=== PATIENT | female | born 1960 | race Caucasian/White ===

== ENCOUNTER 2017-12-06 09:22 | Emergency (ER) | payer BC, OTHER ==
[~2017-12-06] VITALS: Ht 157.5 cm; Wt 45.3 kg
[~2017-12-06 09:22] MED LIST: BACT800T5 PO
[2017-12-06 09:33] VITALS: BP 133/63; PULSE 94; RESP 16; TEMP 97.8; O2SAT 98
[2017-12-06] MEDS ORDERED: MULTTAB68 P-ARTICULR (09:59)
[2017-12-06] MEDS ORDERED: KETOROLAC TROMETHAMINE 30 MG/ML (IVP) VIAL IV PUSH ONE (10:15)
[2017-12-06] MEDS ORDERED: ONDANSETRON HCL 4 MG/2 ML VIAL IV PUSH ONE (10:15)
[2017-12-06] MEDS ORDERED: SODIUM CHLOR 0.9% 1000 ML INJ 1,000 ML IV ONE (10:15)
--- NOTE | 2017-12-06 10:28 | RADRPT ---
EXAM DATE/TIME: 12/06/2017 10:14 [place] COMPARISON: No previous studies available for comparison. INDICATIONS : Flu like symptoms x 4 days. MEDICAL HISTORY : Smoker. SURGICAL HISTORY : Tubal ligation. ENCOUNTER: Initial ACUITY: 4 - 6 days PAIN SCORE: 4/10 LOCATION: chest FINDINGS: PA and lateral views of the chest demonstrate the lungs to be symmetrically aerated without evidence of mass, infiltrate or effusion. The cardiomediastinal contours are unremarkable. Osseous structure s are intact. CONCLUSION: No acute disease. Wilbert Hoang MD FACR on December 06, 2017 at 10:25 Board Certified Radiologist. This report was verified electronically.
[2017-12-06 10:29] LABS: AUTOMATED NEUTROPHIL # 2.2 TH/MM3 (1.8-7.7); BASOPHIL % 0.4 % (0.0-2.0); EOSINOPHIL % 0.6 % (0.0-4.0); HEMATOCRIT 41.3 % (35.0-46.0); HEMOGLOBIN 13.9 GM/DL (11.6-15.3); MEAN CELL VOLUME 92.9 FL (80.0-100.0); MEAN CORPUSCULAR HEMOGLOBIN 31.2 PG (27.0-34.0); MEAN CORPUSCULAR HGB CONC 33.6 % (32.0-36.0); MEAN PLATELET VOLUME 7.4 FL (7.0-11.0); MONO % 13.4 % (0.0-8.0); MONOCYTE # 0.5 TH/MM3 (0-0.9); NEUT % 58.6 % (16.0-70.0); PLATELET COUNT 229 TH/MM3 (150-450); RED BLOOD COUNT 4.44 MIL/MM3 (4.00-5.30); RED CELL DISTRIBUTION WIDTH 13.1 % (11.6-17.2); WHITE BLOOD COUNT 3.7 TH/MM3 (4.0-11.0)
--- NOTE | 2017-12-06 10:29 | PD ---
HPI Chief Complaint: Dizziness Time Seen by Provider: 09:53 Travel History International Travel<30 days: No Contact w/Intl Traveler<30days: No Traveled to known affect area: No History of Present Illness HPI Patient is a 56 year old female who comes in complaining of cough and cold symptoms for the past 4 days. She says she has cough and congestion with fevers. She says she never took her temperature, but felt like she had a fever until Monday. She says she coughs so hard her ribs hurt. She says she has no appetite, but denies nausea or vomiting. She has tried over the counter cold medications without relief. She says she has been feeling lightheaded with these symptoms as well. She denies any difficulty breathing. She says it is mainly the cough that is bothering her. Nothing seems to make her symptoms better or worse. Severity is mild to moderate. PFSH Past Medical History Diminished Hearing: No Immunizations Current: Yes ?: Not Menopausal: Yes Tubal Ligation: Yes Past Surgical History Other Surgery: Yes (FACE, RIGHT FEMUR SX. - PLATES, RODS, PINS R/T [facility] [place] 2002) Social History Alcohol Use: No Tobacco Use: Yes (10/24 PPD) Substance Use: No Allergies-Medications (Allergen,Severity, Reaction): Coded Allergies: No Known Allergies (Verified Adverse Reaction, Unknown, 12/06/17) Reported Meds & Prescriptions Reported Meds & Active Scripts Active Reported Mvy-Zbjmam-Fynid (Multivitamin) 1 Each Tablet 1 Tab P-ARTICULR DAILY Review of Systems Except as stated in HPI: all other systems reviewed are Neg General / Constitutional: Positive: Fever, Chills HENT: Positive: Lightheadedness, Congestion, No: Headaches Cardiovascular: No: Chest Pain or Discomfort Respiratory: Positive: Cough, No: Shortness of Breath Gastrointestinal: No: Nausea, Vomiting, Abdominal Pain Genitourinary: No: Dysuria Musculoskeletal: Positive: Myalgias, No: Edema Skin: No Rash, No Change in Pigmentation Neurologic: No: Weakness Physical Exam Narrative GENERAL: Awake and alert, no acute distress. SKIN: Focused skin assessment warm/dry. No wounds or signs of infection. HEAD: Atraumatic. Normocephalic. EYES: Pupils equal and round. No scleral icterus. ENT: Mucous membranes pink and moist. NECK: Trachea midline. No JVD. CARDIOVASCULAR: Regular rate and rhythm. No murmur appreciated. RESPIRATORY: No accessory muscle use. Clear to auscultation. Breath sounds equal bilaterally. GASTROINTESTINAL: Abdomen soft, non-tender, nondistended. MUSCULOSKELETAL: No obvious deformities. No clubbing. No cyanosis. No edema. NEUROLOGICAL: Awake and alert. No obvious cranial nerve deficits. Motor grossly within normal limits. Normal speech. PSYCHIATRIC: Appropriate mood and affect; insight and judgment normal. Data Data Last Documented VS Vital Signs Date Time Temp Pulse Resp B/P (MAP) Pulse Ox O2 Delivery O2 Flow Rate FiO2 12/06/17 10:45 63 16 108/71 (83) 100 Room Air 12/06/17 09:33 97.8 Orders Orders Iv Access Insert/Monitor (12/06/17 10:02) Complete Blood Count With Diff (12/06/17 10:02) Comprehensive Metabolic Panel (12/06/17 10:02) Chest, Pa & Lat (12/06/17 ) Influenzae A/B Antigen (12/06/17 10:02) Sodium Chlor 0.9% 1000 Ml Inj (Ns 1000 M (12/06/17 10:15) Ondansetron Inj (Zofran Inj) (12/06/17 10:15) Ketorolac Inj (Toradol Inj) (12/06/17 10:15) Labs Laboratory Tests Test 12/06/17 10:20 White Blood Count 3.7 TH/MM3 Red Blood Count 4.44 MIL/MM3 Hemoglobin 13.9 GM/DL Hematocrit 41.3 % Mean Corpuscular Volume 92.9 FL Mean Corpuscular Hemoglobin 31.2 PG Mean Corpuscular Hemoglobin Concent 33.6 % Red Cell Distribution Width 13.1 % Platelet Count 229 TH/MM3 Mean Platelet Volume 7.4 FL Neutrophils (%) (Auto) 58.6 % Lymphocytes (%) (Auto) 27.0 % Monocytes (%) (Auto) 13.4 % Eosinophils (%) (Auto) 0.6 % Basophils (%) (Auto) 0.4 % Neutrophils # (Auto) 2.2 TH/MM3 Lymphocytes # (Auto) 1.0 TH/MM3 Monocytes # (Auto) 0.5 TH/MM3 Eosinophils # (Auto) 0.0 TH/MM3 Basophils # (Auto) 0.0 TH/MM3 CBC Comment DIFF FINAL Differential Comment Blood Urea Nitrogen 16 MG/DL Creatinine 0.53 MG/DL Random Glucose 81 MG/DL Total Protein 8.2 GM/DL Albumin 3.7 GM/DL Calcium Level 8.4 MG/DL Alkaline Phosphatase 80 U/L Aspartate Amino Transf (AST/SGOT) 34 U/L Alanine Aminotransferase (ALT/SGPT) 22 U/L Total Bilirubin 0.3 MG/DL Sodium Level 133 MEQ/L Potassium Level 3.2 MEQ/L Chloride Level 96 MEQ/L Carbon Dioxide Level 28.2 MEQ/L Anion Gap 9 MEQ/L Estimat Glomerular Filtration Rate 118 ML/MIN MDM Medical Decision Making Medical Screen Exam Complete: Yes Emergency Medical Condition: Yes Medical Record Reviewed: Yes Differential Diagnosis Influenza versus pneumonia versus electrolyte abnormality versus dehydration Narrative Course Patient is a 56-year-old female comes in complaining of congestion, coughing, body aches, dizziness. Exam shows no acute abnormalities. IV status, labs sent. Labs show no acute abnormalities, other than a potassium of 3.2, this was replaced. Patient given IV fluids and Toradol. She reports feeling better. Influenza swab is positive. Patient is outside of the window for Tamiflu. She is advised to increase her fluid intake. Continue over-the- counter medications for symptom relief. She is advised to follow-up with a primary care doctor. Advised return anytime for any worsening symptoms. Last 24 hours Impressions Chest X-Ray 12/06/17 0000 Signed Impressions: Service Date/Time: Wednesday, December 06, 2017 10:14 - CONCLUSION: No acute disease. Wilbert Hoang MD FACR Diagnosis Primary Impression: Influenza Patient Instructions: General Instructions, Influenza (ED) Additional Instructions: Follow-up with a primary care doctor. Drink plenty of fluids. Try over-the- counter medication for symptom relief. Return to ED as needed for any worsening symptoms. Disposition: 01 DISCHARGE HOME Condition: Stable Kerri Eden MD Dec 06, 2017 10:29
[2017-12-06 10:42] LABS: CHLORIDE 96 MEQ/L (98-107); SODIUM (NA) 133 MEQ/L (136-145)
[2017-12-06 10:45] VITALS: BP 108/71; PULSE 63; RESP 16; O2SAT 100
[2017-12-06 10:45] LABS: CALCIUM 8.4 MG/DL (8.5-10.1)
[2017-12-06 10:46] LABS: ALBUMIN 3.7 GM/DL (3.4-5.0); BICARBONATE 28.2 MEQ/L (21.0-32.0); BLOOD UREA NITROGEN 16 MG/DL (7-18); GLUCOSE,RANDOM 81 MG/DL (74-106)
[2017-12-06 10:49] LABS: ALT (GPT) 22 U/L (10-53); AST (GOT) 34 U/L (15-37); CREATININE 0.53 MG/DL (0.50-1.00); GLOMERULAR FILTRATION RATE 118 ML/MIN (>89)
[2017-12-06 10:50] LABS: TOTAL BILIRUBIN ADULT 0.3 MG/DL (0.2-1.0); TOTAL PROTEIN 8.2 GM/DL (6.4-8.2)
[2017-12-06 10:52] LABS: ALKALINE PHOSPHATASE 80 U/L (45-117)
[2017-12-06] MEDS ORDERED: POTASSIUM CHLORIDE 10 MEQ CONTROLLED RELEASE TAB PO ONE (11:00)
== END 2017-12-06 11:34 | disposition home or self-care (01) ==
LOC: PHED 09:22
DX: J09.X2 Influenza due to identified novel influenza A virus with other respiratory manifestations (principal); F17.210 Nicotine dependence, cigarettes, uncomplicated
CPT/HCPCS: 71046; 80053; 85025; 87804; 96361; 96374; 96375; 99284; J1885; J2405; J7030